=== PATIENT | male | born 1965 | race Caucasian/White ===

== ENCOUNTER 2017-07-26 15:22 | Emergency (ER) | payer OTHER ==
--- NOTE | 2017-07-26 15:38 | ED Physician Chart ---
ED Chief Complaint/HPI - Patient Information Date Seen:: 07/26/17 Time Seen:: 15:37 Chief Complaint:: SORE THROAT, HEADACHE, MYALGIAS X 1 History of Present Illness:: THIS 52 YEAR OLD MALE WITH COUGH PRODUCTIVE OF CLEAR SPUTUM, SEVERE SORE THROAT , FOR 1 WEEK. HE IS TREATING WITH NIGHT TIME THERAFLU. FOR THE PAST3 NIGHTS HAS BEEN HAVING NIGHT SWEATS. HE ALSO HAS A SINUS HEAD ACHE GOING FROM FRONTAL AREA AND RADIATING TO THE BACK OF THE NECK. PT UNCERTAIN HAVING FEVER AND DENIES ANY CHILLS. PAST MEDICAL HISTORY OF HYPERTENSION. PATIENT'S PAST MEDICAL HISTORY IS OTHERWISE UNREMARKABLE. SEVERITY of the sore throat is severe with no alleviating or exacerbating factors. Allergies:: Allergies Allergy/AdvReac Type Severity Reaction Status Date / Time No Known Allergies Allergy Verified 07/26/17 15:36 Family Medical History - Family Member Father Ethnicity: Non- Living Status: Still Living Other Medical History: High Cholesterol ED Labs/Radiology/EKG Results - Lab Results Results: NO LAB OR RAIOGRAPHIC STUDIES INDICATED. ED Septic Shock - . Is Septic Shock (SBP<90, OR Lactate>4 mmol\L) present?: No ED Reassessment (Disposition) - Reassessment Reassessment Condition:: Unchanged - Diagnosis Diagnosis:: ACUTE PHARYNGITIS/SINUSITIS DISCHARGED WITH PO DEXAMETHASONE IN ED AND WITH AN RX FOR AZITHROMYCIN ([place]) ADVISED TO RETURN TO THE ED IF HIS [id number] WORSEN. ALSO ADVISED TO FOLLOW UP WITH IF NOT IMPROVED BY FRIDAY. ED Discharge Plan - Patient Disposition Instructions: Viral and Bacterial Pharyngitis Additional Instructions: Follow-up with primary MD in 2-3 days. Take antibiotic prescription as ordered.
== END 2017-07-26 16:55 | disposition home or self-care (01) ==
LOC: ER 15:22
DX: J02.9 Acute pharyngitis, unspecified (principal); J01.90 Acute sinusitis, unspecified
CPT/HCPCS: 99283; J8540; Z7502